=== PATIENT | female | born 1975 | race African-American/Black ===

== ENCOUNTER 2024-06-12 21:00 | Emergency (ER) | payer BC, OTHER ==
[~2024-06-12] VITALS: Ht 172.7 cm; Wt 80.0 kg
[2024-06-12 21:03] VITALS: O2SAT 98
[2024-06-12 21:05] VITALS: BP 135/90; PULSE 93; RESP 20; TEMP 98.1; O2SAT 98
== END 2024-06-12 23:54 | disposition home or self-care (01) ==
LOC: ER 21:00
DX: S09.90XA Unspecified injury of head, initial encounter (principal); M25.512 Pain in left shoulder; I50.9 Heart failure, unspecified; I11.0 Hypertensive heart disease with heart failure; E11.9 Type 2 diabetes mellitus without complications; Z98.890 Other specified postprocedural states; X58.XXXA Exposure to other specified factors, initial encounter; Y93.89 Activity, other specified; Y92.89 Other specified places as the place of occurrence of the external cause; Y99.8 Other external cause status
CPT/HCPCS: 99284

== ENCOUNTER 2024-08-18 18:44 | Emergency (ER) | payer OTHER ==
[~2024-08-18] VITALS: Ht 165.1 cm; Wt 83.0 kg
[2024-08-18 18:52] VITALS: BP 124/79; PULSE 100; RESP 17; TEMP 36.7; O2SAT 100
[2024-08-18] MEDS: CYCLOBENZAPRINE 10MG TABLET PO ONE (19:25)
[2024-08-18 20:13] LABS: HCG SCREEN NEGATIVE
[2024-08-18] MEDS ORDERED: IBUP-2029 MT (21:02)
[2024-08-18] MEDS ORDERED: LIDO700A30 TP (21:02)
[2024-08-18] MEDS ORDERED: CYCL10TA21 MT (21:03)
== END 2024-08-18 21:14 | disposition home or self-care (01) ==
LOC: ER 18:44
DX: S39.92XA Unspecified injury of lower back, initial encounter (principal); E11.9 Type 2 diabetes mellitus without complications; I10 Essential (primary) hypertension; I25.2 Old myocardial infarction; J45.909 Unspecified asthma, uncomplicated; Z86.73 Personal history of transient ischemic attack (TIA), and cerebral infarction without residual deficits; Z79.899 Other long term (current) drug therapy; Z88.0 Allergy status to penicillin; Z88.8 Allergy status to other drugs, medicaments and biological substances; V89.2XXA Person injured in unspecified motor-vehicle accident, traffic, initial encounter; Y93.89 Activity, other specified; Y92.89 Other specified places as the place of occurrence of the external cause; Y99.8 Other external cause status
CPT/HCPCS: 72131; 73030; 84703; 99284